=== PATIENT | female | born 1980 | race Caucasian/White ===

== ENCOUNTER → 2025-04-26 | Outpatient (CLI) | payer MEDICAID, SELFPAY ==
--- NOTE | 2025-04-26 11:12 | US_ITS ---
PROCEDURE: TRANSVAGINAL NON- 04/26/2025 REASON FOR EXAM: OVARIAN CYSTS TECHNIQUE: TRANSVAGINAL NON- COMPARISON: None FINDINGS: Patient is postmenopausal. Measurements: Uterus: 7.4 cm x 4.2 cm x 3 cm with a volume of 47.93 mL Endometrial Thickness: 1.9 mm Right Ovary: 2.4 cm x 1.6 cm x 1.6 cm with a volume of 3.27 mL. Left Ovary: 1.9 cm x 2 cm x 1.1 cm with a volume of 2.05 mL. Uterus: Normal size, myometrial echotexture, and contour. Endometrium: Unremarkable. Right ovary: Normal size and echotexture. Left ovary: Normal size and echotexture. Other: No large pelvic mass identified. US/Transvaginal Non- IMPRESSION: NORMAL transvaginal PELVIC ULTRASOUND. Reading Location: [place] [id number]
== END | disposition home or self-care (01) ==
DX: N83.201 Unspecified ovarian cyst, right side (principal); N83.202 Unspecified ovarian cyst, left side
CPT/HCPCS: 76830